=== PATIENT | male | born 1985 | race Caucasian/White ===

== ENCOUNTER 2019-01-30 15:51 | Emergency (ER) | payer OTHER ==
[~2019-01-30] VITALS: Ht 175.3 cm; Wt 65.8 kg
[2019-01-30] MEDS ORDERED: FLONASE 0.05%50 MCG NASAL (16:14)
[2019-01-30] MEDS ORDERED: ZANTAC 150MG T150 MG PO (16:14)
[2019-01-30] MEDS ORDERED: ZYRTEC10 M4 PO (16:14)
[2019-01-30 16:41] VITALS: BP 125/75
== END 2019-01-30 16:42 | disposition home or self-care (01) ==
LOC: M.ERS 15:51
DX: L50.9 Urticaria, unspecified (principal); F17.200 Nicotine dependence, unspecified, uncomplicated